=== PATIENT | female | born 1965 | race American Indian/Alaskan Native ===

== ENCOUNTER 2017-04-06 07:17 | Emergency (ER) | payer MEDICARE, MEDICAID ==
[2017-04-06] MEDS ORDERED: Polyethylene Glycol 3350 Powder 17 GM Packet PO ONE (07:35)
[2017-04-06] MEDS ORDERED: Sodium Chloride 0.9% 10 ML Syringe FLUSH PRN (07:35)
[2017-04-06] MEDS ORDERED: Sodium Chloride 0.9% 1,000 ML IV ONE (07:35)
[2017-04-06] MEDS ORDERED: diphenhydrAMINE 50 MG/ML SDV IVPUSH ONE (07:35)
[2017-04-06] MEDS ORDERED: Ondansetron 4 MG/2 ML SDV IV ONE (07:42)
--- NOTE | 2017-04-06 07:42 | EDM.PDOC ---
ED HPI GENERAL MEDICAL PROBLEM - General Stated Complaint: [id number] A LOT OF STOMACH PAIN Time Seen by Provider: 04/06/17 07:30 Source of Information: Reports: Patient History Limitations: Reports: No Limitations - History of Present Illness INITIAL COMMENTS - FREE TEXT/NARRATIVE: Patient comes emergency Department today with family with complaints of generalized abdominal pain. Patient woke this morning with severe pressure and distention in her abdomen. When she went to bed last night she did not have any symptoms. She does have a history of constipation. She relates that it feels like her constipation in the past. Most recently she has been on some pain medication following a tooth extraction. She has not been eating or drinking much at home. She denies any fever or chills. She does complain of nausea without vomiting. She denies any chest pain or shortness of breath. She denies any flank pain. She denies any hematuria dysuria or urinary frequency. Her last bowel movement was over a week ago and was nothing but hard judy she relates. Bilateral Middle Abdomen Pain Score (Numeric/FACES): 10 - Related Data Allergies Allergy/AdvReac Type Severity Reaction Status Date / Time carbamazepine [From Tegretol] Allergy Hives Verified 04/06/17 07:58 codeine Allergy Hives Verified 04/06/17 07:58 ibuprofen Allergy Hives Verified 04/06/17 07:58 levetiracetam [From Keppra] Allergy Hives Verified 04/06/17 07:58 oxycodone [Oxycodone] Allergy Hives Verified 04/06/17 07:58 phenobarbital Allergy Hives Verified 04/06/17 07:58 phenytoin sodium Allergy Hives Verified 04/06/17 07:58 [From Dilantin] phenytoin sodium extended Allergy Hives Verified 04/06/17 07:58 [From Dilantin] diazepam [From Valium] AdvReac Agitation Verified 04/06/17 07:58 Home Meds: Home Meds Divalproex Sodium [Divalproex Sodium ER] 500 mg PO DAILY 10/11/13 [History] Omeprazole [Omeprazole] 20 mg PO DAILY 09/28/15 [History] atorvaSTATin Calcium [Atorvastatin Calcium] 40 mg PO DAILY 10/21/16 [History] Methylprednisolone [IJD: Methylprednisolone] 4 mg PO ASDIRECTED 04/06/17 [ History] hydrOXYzine HCl [Atarax] 25 mg PO TID 04/06/17 [History] Past Medical History Cardiovascular History: Reports: High Cholesterol 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 ED EXAM, GI/ABD - Physical Exam Exam: See Below General Appearance: Alert, Anxious Ears: Normal External Exam, Normal Canal Nose: Normal Inspection, Normal Mucosa Throat/Mouth: Normal Inspection, Normal Lips, Normal Oropharynx Head: Atraumatic, Normocephalic Neck: Normal Inspection, Supple, Non-Tender Respiratory/Chest: No Respiratory Distress, Lungs Clear, Normal Breath Sounds, No Accessory Muscle Use, Other (Tachypnea from anxiety.) Cardiovascular: Normal Peripheral Pulses, Regular Rate, Rhythm, No Edema, No Murmur, No Rub GI/Abdominal: No Abnormal Bruit, No Mass, Hypoactive Bowel Sounds, Tenderness ( Generalized tenderness throughout.), Distention, Other (Dullness to percussion throughout.). No: Guarding, Rebound, Rigidity, Obturator Sign, Cross's Sign (Female) Exam: Deferred Rectal (Female) Exam: Deferred Back Exam: Normal Inspection. No: CVA Tenderness (L), CVA Tenderness (R) Extremities: Normal Inspection, Normal Range of Motion, Normal Capillary Refill Neurological: Alert, Oriented, Normal Cognition Psychiatric: Anxious Skin Exam: Warm, Dry, Intact, Normal Color Lymphatic: No Adenopathy Course - Vital Signs Last Recorded V/S: Last Vital Signs Temp 36.1 C 04/06/17 09:16 Pulse 48 L 04/06/17 09:16 Resp 20 04/06/17 09:16 BP 139/68 04/06/17 09:16 Pulse Ox 97 04/06/17 09:16 - Orders/Labs/Meds Orders: Active Orders 24 hr Category Date Time Status Enema [RC] ASDIRECTED Care 04/06/17 08:19 Active Peripheral IV Care [RC] . DIRECTED Care 04/06/17 07:36 Active Sodium Chloride 0.9% [Saline Flush] Med 04/06/17 07:35 Active 10 ml FLUSH ASDIRECTED PRN Peripheral IV Insertion Adult [OM.PC] Stat Oth 04/06/17 07:35 Ordered Medication Orders Sodium Chloride (Saline Flush) 10 ml FLUSH ASDIRECTED PRN PRN Reason: Keep Vein Open Last Admin: 04/06/17 07:51 Dose: 10 ml Labs: Laboratory Tests 04/06/17 04/06/17 04/06/17 Range/Units 08:01 08:01 08:31 WBC 11.5 H (5.0-10.0) 10^3/uL RBC 4.51 (4.2-5.4) 10^6/uL Hgb 13.8 (12.0-16.0) g/dL Hct 41.3 (37.0-47.0) % MCV 91.6 (80-100) fL MCH 30.6 (27.0-34.0) pg MCHC 33.4 (33.0-35.0) g/dL Plt Count 224 (150-450) 10^3/uL Neut % (Auto) 55.5 (42.2-75.2) % Lymph % (Auto) 39.0 (20.5-50.1) % [place] % (Auto) 5.1 (2-8) % Eos % (Auto) 0.4 L (1.0-3.0) % Baso % (Auto) 0.0 (0.0-1.0) % Sodium 142 (135-145) mmol/L Potassium 3.5 L (3.6-5.0) mmol/L Chloride 106 (101-111) mmol/L Carbon Dioxide 20.0 L (21.0-31.0) mmol/L Anion Gap 19.5 BUN 20 H (7-18) mg/dL Creatinine 0.7 (0.6-1.3) mg/dL Est Cr Clr Drug Dosing TNP Estimated GFR (MDRD) > 60 BUN/Creatinine Ratio 28.57 Glucose 101 (74-105) mg/dL Calcium 9.5 (8.4-10.2) mg/dl Total Bilirubin 0.6 (0.2-1.0) mg/dL AST 26 (10-42) IU/L ALT 30 (10-60) IU/L Alkaline Phosphatase 65 (42-121) IU/L Total Protein 7.7 (6.7-8.2) g/dl Albumin 4.4 (3.2-5.5) g/dl Globulin 3.3 Albumin/Globulin Ratio 1.33 Urine Color Yellow (YELLOW) Urine Appearance Clear (CLEAR) Urine pH 8.5 (5.0-9.0) Ur Specific [place] 1.015 (1.005-1.030) Urine Protein Negative (NEGATIVE) Urine Glucose (UA) Negative (NEGATIVE) Urine Ketones Negative (NEGATIVE) Urine Occult Blood Negative (NEGATIVE) Urine Nitrite Negative (NEGATIVE) Urine Bilirubin Negative (NEGATIVE) Urine Urobilinogen 0.2 (0.2-1.0) mg/dL Ur Leukocyte Esterase Trace H (NEGATIVE) Urine RBC Not seen /HPF Urine WBC 0-5 (0-5/HPF) /HPF Ur Epithelial Cells Few /HPF Urine Bacteria Not seen (0-FEW/HPF) /HPF Meds: Medications Generic Name Dose Route Start Last Admin Trade Name Freq PRN Reason Stop Dose Admin Sodium Chloride 10 ml 04/06/17 07:35 04/06/17 07:51 Saline Flush FLUSH 10 ml ASDIRECTED PRN Administration Keep Vein Open Discontinued Medications Generic Name Dose Route Start Last Admin Trade Name Freq PRN Reason Stop Dose Admin Diphenhydramine HCl 25 mg 04/06/17 07:35 04/06/17 07:51 Benadryl IVPUSH 04/06/17 07:36 25 mg ONETIME ONE Administration Sodium Chloride 1,000 mls @ 999 mls/hr 04/06/17 07:35 04/06/17 09:14 Normal Saline IV 04/06/17 08:35 Infused .BOLUS ONE Infusion Ondansetron HCl 4 mg 04/06/17 07:42 04/06/17 07:51 Zofran IV 04/06/17 07:43 4 mg ONETIME ONE Administration Polyethylene Glycol 34 gm 04/06/17 07:35 04/06/17 08:31 Miralax PO 04/06/17 07:36 34 gm ONETIME ONE Administration - Radiology Interpretation Free Text/Narrative:: X-ray of the abdomen reviewed extemporaneously by myself. Large amount of stool throughout the colon. No air-fluid levels consistent with obstruction no volvulus. - Re-Assessments/Exams Free Text/Narrative Re-Assessment/Exam: 04/06/17 08:31 IV normal saline 1 L wide open for IV hydration. Zofran 4 mg IV push for nausea. Benadryl 25 mg IV push for nausea and anxiety. MiraLAX 34 g by mouth. Explained to the patient that she appears to be constipated. This is most likely related to her current usage of narcotics following a dental procedure. We will try an enema and some MiraLAX to get things moving forward. 04/06/17 10:34 After two enemas the patient had large results. Her abd is soft, with present bowel sounds. She denies any pain or nausea feels much better and ready to go home. Discharge instructions as below were explained to the patient she was comfortable with the plan and her questions were answered. Departure - Departure Time of Disposition: 10:08 Disposition: Home, Self-Care 01 Clinical Impression: Constipation Qualifiers: Constipation type: unspecified constipation type Qualified Code(s): K59.00 - Constipation, unspecified - Discharge Information Instructions: Constipation, Adult, [id number] Forms: ED Department Discharge Additional Instructions: Increase fluid intake until easy smooth bowel movements, water gatorade, Decrease caffeine as can dehydrate you. Miralax 1 capfull a day with a large glass of water. May increase every 2 days by a capfull until easy smooth bowel movements. Increase exercise or activity. Next time you take pain medication narcotics for any reason use the miralax to prevent constipation. Return to the ED if new or worsening symptoms. Recheck primary care provider in the next 4-6 days if not improving sooner if worse. - My Orders Last 24 Hours: My Active Orders 04/06/17 07:35 Sodium Chloride 0.9% [Saline Flush] 10 ml FLUSH ASDIRECTED PRN Peripheral IV Insertion Adult [OM.PC] Stat 04/06/17 07:36 Peripheral IV Care [RC] . DIRECTED 04/06/17 08:19 Enema [RC] ASDIRECTED - Assessment/Plan Last 24 Hours: My Active Orders 04/06/17 07:35 Sodium Chloride 0.9% [Saline Flush] 10 ml FLUSH ASDIRECTED PRN Peripheral IV Insertion Adult [OM.PC] Stat 04/06/17 07:36 Peripheral IV Care [RC] . DIRECTED 04/06/17 08:19 Enema [] ASDIRECTED Assessment:: Constipation, most likely narcotic induced due to recent dental extraction. Plan: Increase fluid intake until easy smooth bowel movements, water gatorade, Decrease caffeine as can dehydrate you. Miralax 1 capfull a day with a large glass of water. May increase every 2 days by a capfull until easy smooth bowel movements. Increase exercise or activity. Next time you take pain medication narcotics for any reason use the miralax to prevent constipation. Return to the ED if new or worsening symptoms. Recheck primary care provider in the next 4-6 days if not improving sooner if worse.
[2017-04-06 08:27] LABS: CHLORIDE,CL 106 mmol/L (101-111); SODIUM,NA 142 mmol/L (135-145)
[2017-04-06 09:17] VITALS: BP 139/68
== END 2017-04-06 10:30 | disposition home or self-care (01) ==
LOC: DL.ED 07:17
DX: K59.00 Constipation, unspecified (principal); E78.00 Pure hypercholesterolemia, unspecified; F41.9 Anxiety disorder, unspecified; Z88.8 Allergy status to other drugs, medicaments and biological substances; Z88.5 Allergy status to narcotic agent; Z88.6 Allergy status to analgesic agent; Z79.899 Other long term (current) drug therapy
CPT/HCPCS: 36415; 74020; 80053; 81001; 85025; 96365; 96375; 99284; A9270; J1200; J2405; J7030; J7050

== ENCOUNTER 2019-01-09 18:53 | Emergency (ER) | payer MEDICARE, MEDICAID ==
[2019-01-09 19:28] VITALS: BP 95/61
--- NOTE | 2019-01-09 19:37 | EDM.PDOC ---
ED HPI GENERAL MEDICAL PROBLEM - General Chief Complaint: Respiratory Problem Stated Complaint: LEFT SIDE ACHES [id number] Time Seen by Provider: 01/09/19 19:34 Source of Information: Reports: Patient History Limitations: Reports: No Limitations - History of Present Illness INITIAL COMMENTS - FREE TEXT/NARRATIVE: onset last night SOB hurts to breath, hard to cough, only ate half sandwich all day denies N/V/D. Generalized Pain Score (Numeric/FACES): 5 - Related Data Allergies Allergy/AdvReac Type Severity Reaction Status Date / Time carbamazepine [From Tegretol] Allergy Hives Verified 04/06/17 07:58 codeine Allergy Hives Verified 04/06/17 07:58 ibuprofen Allergy Hives Verified 04/06/17 07:58 levetiracetam [From Keppra] Allergy Hives Verified 04/06/17 07:58 oxycodone [Oxycodone] Allergy Hives Verified 04/06/17 07:58 phenobarbital Allergy Hives Verified 04/06/17 07:58 phenytoin sodium Allergy Hives Verified 04/06/17 07:58 [From Dilantin] phenytoin sodium extended Allergy Hives Verified 04/06/17 07:58 [From Dilantin] diazepam [From Valium] AdvReac Agitation Verified 04/06/17 07:58 Home Meds: Home Meds Divalproex Sodium [Divalproex Sodium ER] 500 mg PO DAILY 10/11/13 [History] Omeprazole 20 mg PO DAILY 09/28/15 [History] atorvaSTATin Calcium [Atorvastatin Calcium] 40 mg PO DAILY 10/21/16 [History] Methylprednisolone [IJD: Methylprednisolone] 4 mg PO ASDIRECTED 04/06/17 [ History] hydrOXYzine HCl [Atarax] 25 mg PO TID 04/06/17 [History] Past Medical History Cardiovascular History: Reports: High Cholesterol 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 ED EXAM, GENERAL - Physical Exam Exam: See Below Exam Limited By: No Limitations General Appearance: Alert, WD/WN, Mild Distress, Other (general [place]) Ears: Hearing Grossly Normal Throat/Mouth: Normal Voice, No Airway Compromise Head: Atraumatic Neck: Non-Tender, Full Range of Motion Respiratory/Chest: No Accessory Muscle Use, Rhonchi, Splinting Cardiovascular: Regular Rate, Rhythm GI/Abdominal: Soft, Non-Tender Neurological: Alert, Oriented, Normal Cognition, Normal Gait, No Motor/Sensory Deficits Psychiatric: Flat Affect Skin Exam: Warm, Dry, No Rash Lymphatic: No Adenopathy Course - Vital Signs Last Recorded V/S: Last Vital Signs Temp 37.7 C 01/09/19 19:27 Pulse 93 01/09/19 19:27 Resp 18 01/09/19 19:27 BP 95/61 01/09/19 19:27 Pulse Ox 96 01/09/19 19:27 - Orders/Labs/Meds Orders: Active Orders 24 hr Category Date Time Status EKG Documentation Completion [RC] STAT Care 01/09/19 19:33 Active RT Aerosol Therapy [RC] ASDIRECTED Care 01/09/19 21:01 Active Labs: Laboratory Tests 01/09/19 01/09/19 01/09/19 Range/Units 19:42 19:42 19:42 WBC 19.7 H (5.0-10.0) 10^3/uL RBC 4.25 (4.2-5.4) 10^6/uL Hgb 13.2 (12.0-16.0) g/dL Hct 38.6 (37.0-47.0) % MCV 90.8 (80-100) fL MCH 31.1 (27.0-34.0) pg MCHC 34.2 (33.0-35.0) g/dL Plt Count 180 (150-450) 10^3/uL Neut % (Auto) 75.3 H (42.2-75.2) % Lymph % (Auto) 14.7 L (20.5-50.1) % [place] % (Auto) 9.7 H (2-8) % Eos % (Auto) 0.1 L (1.0-3.0) % Baso % (Auto) 0.2 (0.0-1.0) % D-Dimer, Quantitative 158 (0-400) ng/mL Sodium 136 (135-145) mmol/L Potassium 3.5 L (3.6-5.0) mmol/L Chloride 103 (101-111) mmol/L Carbon Dioxide 22.0 (21.0-31.0) mmol/L Anion Gap 14.5 BUN 19 H (7-18) mg/dL Creatinine 0.7 (0.6-1.3) mg/dL Est Cr Clr Drug Dosing 89.01 mL/min Estimated GFR (MDRD) > 60 BUN/Creatinine Ratio 27.14 Glucose 103 (74-105) mg/dL Lactic Acid (0.5-2.2) mmol/L Calcium 9.1 (8.4-10.2) mg/dl Total Bilirubin 1.5 H (0.2-1.0) mg/dL AST 16 (10-42) IU/L ALT 12 (10-60) IU/L Alkaline Phosphatase 49 (42-121) IU/L Troponin I < 0.02 (0.00-0.02) ng/ml Total Protein 7.1 (6.7-8.2) g/dl Albumin 3.8 (3.2-5.5) g/dl Globulin 3.3 Albumin/Globulin Ratio 1.15 HCG, Qual Negative 01/09/19 Range/Units 19:42 WBC (5.0-10.0) 10^3/uL RBC (4.2-5.4) 10^6/uL Hgb (12.0-16.0) g/dL Hct (37.0-47.0) % MCV (80-100) fL MCH (27.0-34.0) pg MCHC (33.0-35.0) g/dL Plt Count (150-450) 10^3/uL Neut % (Auto) (42.2-75.2) % Lymph % (Auto) (20.5-50.1) % [place] % (Auto) (2-8) % Eos % (Auto) (1.0-3.0) % Baso % (Auto) (0.0-1.0) % D-Dimer, Quantitative (0-400) ng/mL Sodium (135-145) mmol/L Potassium (3.6-5.0) mmol/L Chloride (101-111) mmol/L Carbon Dioxide (21.0-31.0) mmol/L Anion Gap BUN (7-18) mg/dL Creatinine (0.6-1.3) mg/dL Est Cr Clr Drug Dosing mL/min Estimated GFR (MDRD) BUN/Creatinine Ratio Glucose (74-105) mg/dL Lactic Acid 1.2 (0.5-2.2) mmol/L Calcium (8.4-10.2) mg/dl Total Bilirubin (0.2-1.0) mg/dL AST (10-42) IU/L ALT (10-60) IU/L Alkaline Phosphatase (42-121) IU/L Troponin I (0.00-0.02) ng/ml Total Protein (6.7-8.2) g/dl Albumin (3.2-5.5) g/dl Globulin Albumin/Globulin Ratio HCG, Qual Meds: Medications Discontinued Medications Generic Name Dose Route Start Last Admin Trade Name Salomónq PRN Reason Stop Dose Admin Albuterol/Ipratropium 3 ml 01/09/19 21:01 01/09/19 21:21 Duoneb 3.0-0.5 Mg/3 Ml NEB 01/09/19 21:02 3 ml ONETIME ONE Administration Ceftriaxone Sodium 1 gm/ 50 mls @ 50 mls/hr 01/09/19 21:01 01/09/19 21:17 Sodium Chloride IV 01/09/19 22:00 50 mls/hr ONETIME ONE Administration Sodium Chloride 1,000 mls @ 999 mls/hr 01/09/19 21:01 01/09/19 21:12 Normal Saline IV 01/09/19 22:01 999 mls/hr .BOLUS ONE Administration Methylprednisolone Sodium Succinate 125 mg 01/09/19 21:01 01/09/19 21:18 Solu-Medrol IVPUSH 01/09/19 21:02 125 mg ONETIME ONE Administration - Re-Assessments/Exams Free Text/Narrative Re-Assessment/Exam: 01/09/19 21:32 results discussed with pt who is feeling much better s/p Rx Departure - Departure Time of Disposition: 23:10 Disposition: Home, Self-Care 01 Condition: Good Clinical Impression: Pneumonia Qualifiers: Pneumonia type: due to unspecified organism Laterality: right Lung location: middle lobe of lung Qualified Code(s): J18.1 - Lobar pneumonia, unspecified organism - Discharge Information Instructions: Community-Acquired Pneumonia, Adult Referrals: PCP,None [Primary Care Provider] - Forms: ED Department Discharge Additional Instructions: 1) rest 2) drink lots of liquids 3) take tylenol or motrin for fever 4) follow up at clinic rx given; z-joe tessalon pearles 100mg bid prn x 12 - My Orders Last 24 Hours: My Active Orders 01/09/19 19:33 EKG Documentation Completion [RC] STAT 01/09/19 21:01 RT Aerosol Therapy [RC] ASDIRECTED - Assessment/Plan Last 24 Hours: My Active Orders 01/09/19 19:33 EKG Documentation Completion [RC] STAT 01/09/19 21:01 RT Aerosol Therapy [RC] ASDIRECTED
[2019-01-09 20:14] LABS: ANION GAP 14.5; CHLORIDE,CL 103 mmol/L (101-111); SODIUM,NA 136 mmol/L (135-145)
[2019-01-09] MEDS ORDERED: Sodium Chloride 0.9% 1,000 ML IV ONE (21:01)
[2019-01-09] MEDS ORDERED: Albuterol/Ipratropium 3.0-0.5 MG/3 ML Neb Soln NEB ONE (21:01)
[2019-01-09] MEDS ORDERED: cefTRIAXone 1 GM in Sodium Chloride 0.9% 50 ML IV ONE (21:01)
[2019-01-09] MEDS ORDERED: methylPREDNISolone Sodium Succinate 125 MG/2 ML SDV IVPUSH ONE (21:01)
== END 2019-01-09 23:10 | disposition home or self-care (01) ==
LOC: DL.ED 18:53
DX: J18.1 Lobar pneumonia, unspecified organism (principal); F41.9 Anxiety disorder, unspecified; E78.00 Pure hypercholesterolemia, unspecified; Z88.5 Allergy status to narcotic agent; Z88.8 Allergy status to other drugs, medicaments and biological substances; Z79.899 Other long term (current) drug therapy
CPT/HCPCS: 36415; 71046; 80053; 83605; 84484; 84703; 85025; 85379; 93005; 94640; 96361; 96365; 96375; 99285; J0696; J2930; J7030; J7050; J7620-GY

== ENCOUNTER 2019-03-14 16:29 | Emergency (ER) | payer MEDICARE, OTHER ==
--- NOTE | 2019-03-14 17:08 | EDM.PDOC ---
"ED HPI GENERAL MEDICAL PROBLEM - General Chief Complaint: Neurological Problem Stated Complaint: SEIZURE/[id number] Time Seen by Provider: 03/14/19 17:08 Source of Information: Reports: Patient, Family, Old Records, RN, RN Notes Reviewed History Limitations: Reports: No Limitations - History of Present Illness INITIAL COMMENTS - FREE TEXT/NARRATIVE: Pt presents to ER with c/o a seizure. Pt reports Hx of history of seizure d/o but hasn't had a seizure for 7 years. She has injury to the Rt ring finger. The seizure was not witnessed. Pt states the seizure could have only lasted a few seconds because she told her neighbor to go call her daughter and the neighbor just stepped into the house to grab the phone and came right back out and by then the seizure was over. Pt's family report postictal confusion lasting about 15 minutes. Onset: Today Duration: Resolved Prior to Arrival Location: Reports: Generalized Severity: Mild Improves with: Reports: None Worsens with: Reports: None Associated Symptoms: Reports: No Other Symptoms - Related Data Allergies Allergy/AdvReac Type Severity Reaction Status Date / Time carbamazepine [From Tegretol] Allergy Hives Verified 03/14/19 16:53 codeine Allergy Hives Verified 03/14/19 16:53 ibuprofen Allergy Hives Verified 03/14/19 16:53 levetiracetam [From Keppra] Allergy Hives Verified 03/14/19 16:53 oxycodone [Oxycodone] Allergy Hives Verified 03/14/19 16:53 phenobarbital Allergy Hives Verified 03/14/19 16:53 phenytoin sodium Allergy Hives Verified 03/14/19 16:53 [From Dilantin] phenytoin sodium extended Allergy Hives Verified 03/14/19 16:53 [From Dilantin] diazepam [From Valium] AdvReac Agitation Verified 03/14/19 16:53 Home Meds: Home Meds Divalproex Sodium [Divalproex Sodium ER] 500 mg PO DAILY 10/11/13 [History] Omeprazole 20 mg PO DAILY 09/28/15 [History] ClonazePAM [KlonoPIN] 0.5 mg PO DAILY 03/14/19 [History] Past Medical History HEENT History: Reports: Impaired Vision Other HEENT History: wears glasses Cardiovascular History: Reports: High Cholesterol Respiratory History: Reports: None Gastrointestinal History: Reports: GERD, PUD Genitourinary History: Reports: None FEED ADVISER History: Reports: Musculoskeletal History: Reports: Fracture Neurological History: Reports: CVA, Seizure Psychiatric History: Reports: Anxiety Endocrine/Metabolic History: Reports: None Hematologic History: Reports: None Immunologic History: Reports: None Oncologic (Cancer) History: Reports: None Dermatologic History: Reports: None - Infectious Disease History Infectious Disease History: Reports: None - Past Surgical History Head Surgeries/Procedures: Reports: None HEENT Surgical History: Reports: Adenoidectomy, Tonsillectomy Social & Family History - Family History Family Medical History: Noncontributory - Tobacco Use Smoking Status *Q: Never Smoker Second Hand Smoke Exposure: No - Caffeine Use Caffeine Use: Reports: Energy Drinks - Recreational Drug Use Recreational Drug Type: Reports: Marijuana/Hashish - Living Situation & Occupation Living situation: Reports: with Family Occupation: Disabled ED ROS GENERAL - Review of Systems Review Of Systems: ROS reveals no pertinent complaints other than HPI. - Physical Exam Exam: See Below Exam Limited By: No Limitations General Appearance: Alert, WD/WN, No Apparent Distress Eye Exam: Bilateral Eye: EOMI, Normal Inspection, PERRL Ears: Normal External Exam, Normal Canal, Hearing Grossly Normal, Normal TMs Nose: Normal Inspection, Normal Mucosa, No Blood Throat/Mouth: Normal Lips, Normal Oropharynx, Normal Voice, No Airway Compromise , Evidence of Tongue Biting Head Exam: Atraumatic, Normocephalic Neck: Normal Inspection, Supple, Non-Tender, Full Range of Motion Respiratory/Chest: No Respiratory Distress, Lungs Clear, Normal Breath Sounds, No Accessory Muscle Use, Chest Non-Tender Cardiovascular: Normal Peripheral Pulses, Regular Rate, Rhythm, No Edema, No Gallop, No JVD, No Murmur, No Rub GI/Abdominal: Normal Bowel Sounds, Soft, Non-Tender, No Organomegaly, No Distention, No Abnormal Bruit, No Mass (Female) Exam: Deferred Rectal (Female) Exam: Deferred Neuro Exam (Abbreviated): Alert, Oriented, CN II-XII Intact, Normal Cognition, Normal Gait, Normal Reflexes, No Motor/Sensory Deficits Back Exam: Normal Inspection Extremities: No Pedal Edema, Normal Capillary Refill, Other (Right 4th finger distal PIP swollen and bruised) Psychiatric: Normal Affect, Normal Mood Skin Exam: Warm, Dry, Wound/Incision (small superficial abrasion to Rt ankle) ED PROCEDURES - Joint Reduction Site: Finger (R) (4th distal PIP) Sedation: Other (none (pt declined)) Pre-procedure NV status: Normal Post-procedure NV status: Normal Technique: Other (close manual reduction) Number of Attempts: 1 Post-Reduction Imaging: Completely Reduced Complications: No - Splinting Right 4th Digit Splint Site: Rt 4th finger Pre-procedure NV status: Normal Post-procedure NV status: Normal Splint Material: Aluminum-Foam Splint Design: Sugar Tong Applied & Form Fitted By: Nurse Provider Post-Splint Application NV Check: NV Status Normal, Good Position Complications: No Course - Vital Signs Last Recorded V/S: Last Vital Signs Temp 36.3 C 03/14/19 18:25 Pulse 70 03/14/19 18:25 Resp 16 03/14/19 18:25 BP 122/53 L 03/14/19 18:25 Pulse Ox 99 03/14/19 18:25 - Orders/Labs/Meds Orders: Active Orders 24 hr Category Date Time Status Blood Glucose Check, Bedside [RC] ONETIME Care 03/14/19 17:16 Active Peripheral IV Care [RC] . DIRECTED Care 03/14/19 17:16 Active Splinting [RC] ASDIRECTED Care 03/14/19 17:18 Active CULTURE URINE [RM] Stat Lab 03/14/19 18:00 Received VALPROIC ACID [REF] Stat Lab 03/14/19 17:23 Received Peripheral IV Insertion Adult [OM.PC] Stat Oth 03/14/19 17:16 Ordered Seizure Precautions [OM.PC] Routine Oth 03/14/19 17:14 Ordered Labs: Laboratory Tests 03/14/19 03/14/19 03/14/19 Range/Units 17:23 17:23 18:00 WBC 6.1 (5.0-10.0) 10^3/uL RBC 4.10 L (4.2-5.4) 10^6/uL Hgb 12.9 (12.0-16.0) g/dL Hct 38.6 (37.0-47.0) % MCV 94.1 D (80-100) fL MCH 31.5 (27.0-34.0) pg MCHC 33.4 (33.0-35.0) g/dL Plt Count 161 (150-450) 10^3/uL Neut % (Auto) 46.8 (42.2-75.2) % Lymph % (Auto) 42.8 (20.5-50.1) % [place] % (Auto) 6.3 (2-8) % Eos % (Auto) 3.6 H (1.0-3.0) % Baso % (Auto) 0.5 (0.0-1.0) % Sodium 138 (135-145) mmol/L Potassium 2.9 L (3.6-5.0) mmol/L Chloride 105 (101-111) mmol/L Carbon Dioxide 25.0 (21.0-31.0) mmol/L Anion Gap 10.9 BUN 21 H (7-18) mg/dL Creatinine 0.6 (0.6-1.3) mg/dL Est Cr Clr Drug Dosing 103.84 mL/min Estimated GFR (MDRD) > 60 BUN/Creatinine Ratio 35.00 Glucose 111 H (74-105) mg/dL Calcium 8.5 (8.4-10.2) mg/dl Total Bilirubin 0.8 (0.2-1.0) mg/dL AST 17 (10-42) IU/L ALT 11 (10-60) IU/L Alkaline Phosphatase 47 (42-121) IU/L Lactate Dehydrogenase 143 (91-180) IU/L Creatine Kinase 73 (26-174) IU/L Total Protein 7.2 (6.7-8.2) g/dl Albumin 4.2 (3.2-5.5) g/dl Globulin 3.0 Albumin/Globulin Ratio 1.40 Urine Color Yellow (YELLOW) Urine Appearance Cloudy (CLEAR) Urine pH 7.5 (5.0-9.0) Ur Specific [place] 1.020 (1.005-1.030) Urine Protein Negative (NEGATIVE) Urine Glucose (UA) Negative (NEGATIVE) Urine Ketones Negative (NEGATIVE) Urine Occult Blood Small H (NEGATIVE) Urine Nitrite Negative (NEGATIVE) Urine Bilirubin Negative (NEGATIVE) Urine Urobilinogen 0.2 (0.2-1.0) mg/dL Ur Leukocyte Esterase Trace H (NEGATIVE) Urine RBC 10-20 H /HPF Urine WBC 5-10 H (0-5/HPF) /HPF Ur Epithelial Cells Few (NOT SEEN) /HPF Amorphous Sediment Rare (NOT SEEN) /HPF Urine Bacteria Few (0-FEW/HPF) /HPF Urine Mucus Few H (NOT SEEN) /LPF Urine Opiates Screen (NEGATIVE) Ur Oxycodone Screen (NEGATIVE) Urine Methadone Screen (NEGATIVE) Ur Barbiturates Screen (NEGATIVE) U Tricyclic Antidepress (NEGATIVE) Ur Phencyclidine Scrn (NEGATIVE) Ur Amphetamine Screen (NEGATIVE) U Methamphetamines Scrn (NEGATIVE) Urine MDMA Screen (NEGATIVE) U Benzodiazepines Scrn (NEGATIVE) Urine Cocaine Screen (NEGATIVE) U Marijuana (THC) Screen (NEGATIVE) Ethyl Alcohol < 5 mg/dL 03/14/19 Range/Units 18:00 WBC (5.0-10.0) 10^3/uL RBC (4.2-5.4) 10^6/uL Hgb (12.0-16.0) g/dL Hct (37.0-47.0) % MCV (80-100) fL MCH (27.0-34.0) pg MCHC (33.0-35.0) g/dL Plt Count (150-450) 10^3/uL Neut % (Auto) (42.2-75.2) % Lymph % (Auto) (20.5-50.1) % [place] % (Auto) (2-8) % Eos % (Auto) (1.0-3.0) % Baso % (Auto) (0.0-1.0) % Sodium (135-145) mmol/L Potassium (3.6-5.0) mmol/L Chloride (101-111) mmol/L Carbon Dioxide (21.0-31.0) mmol/L Anion Gap BUN (7-18) mg/dL Creatinine (0.6-1.3) mg/dL Est Cr Clr Drug Dosing mL/min Estimated GFR (MDRD) BUN/Creatinine Ratio Glucose (74-105) mg/dL Calcium (8.4-10.2) mg/dl Total Bilirubin (0.2-1.0) mg/dL AST (10-42) IU/L ALT (10-60) IU/L Alkaline Phosphatase (42-121) IU/L Lactate Dehydrogenase (91-180) IU/L Creatine Kinase (26-174) IU/L Total Protein (6.7-8.2) g/dl Albumin (3.2-5.5) g/dl Globulin Albumin/Globulin Ratio Urine Color (YELLOW) Urine Appearance (CLEAR) Urine pH (5.0-9.0) Ur Specific [place] (1.005-1.030) Urine Protein (NEGATIVE) Urine Glucose (UA) (NEGATIVE) Urine Ketones (NEGATIVE) Urine Occult Blood (NEGATIVE) Urine Nitrite (NEGATIVE) Urine Bilirubin (NEGATIVE) Urine Urobilinogen (0.2-1.0) mg/dL Ur Leukocyte Esterase (NEGATIVE) Urine RBC /HPF Urine WBC (0-5/HPF) /HPF Ur Epithelial Cells (NOT SEEN) /HPF Amorphous Sediment (NOT SEEN) /HPF Urine Bacteria (0-FEW/HPF) /HPF Urine Mucus (NOT SEEN) /LPF Urine Opiates Screen Positive H (NEGATIVE) Ur Oxycodone Screen Positive H (NEGATIVE) Urine Methadone Screen Negative (NEGATIVE) Ur Barbiturates Screen Negative (NEGATIVE) U Tricyclic Antidepress Negative (NEGATIVE) Ur Phencyclidine Scrn Negative (NEGATIVE) Ur Amphetamine Screen Negative (NEGATIVE) U Methamphetamines Scrn Negative (NEGATIVE) Urine MDMA Screen Negative (NEGATIVE) U Benzodiazepines Scrn Negative (NEGATIVE) Urine Cocaine Screen Negative (NEGATIVE) U Marijuana (THC) Screen Positive H (NEGATIVE) Ethyl Alcohol mg/dL Meds: Medications Discontinued Medications Generic Name Dose Route Start Last Admin Trade Name Freq PRN Reason Stop Dose Admin Lidocaine HCl 30 ml 03/14/19 17:18 03/14/19 17:40 Xylocaine-Mpf 1% INJECT 03/14/19 17:19 30 ml ONETIME ONE Administration Potassium Chloride 40 meq 03/14/19 18:31 03/14/19 18:35 Klor-Con 10 PO 03/14/19 18:32 40 meq ONETIME ONE Administration Sodium Chloride 10 ml 03/14/19 17:16 03/14/19 17:40 Saline Flush FLUSH 10 ml ASDIRECTED PRN Administration Keep Vein Open - Radiology Interpretation Free Text/Narrative:: [facility] Final Radiology Report Call: [phone] assistance Online chat: [email or web address] Name: BRISEYDA BOND Age: 53Years F Date: 03/14/2019 SSN: -- : [id number] Study: CT HEAD WO Requesting Physician: MALINA HEARN Images: 145 Addl Studies: Provided Clinical History: Contrast: Without Contrast Medium: Contrast Amount: Contrast Method: Page 1 of 2 EXAM: CT Head Without Contrast EXAM DATE/TIME: 03/14/2019 5:35 PM CLINICAL HISTORY: 53 years old, female; Injury or trauma; Injury history: Seizure, Hx of CVA; Initial encounter; Blunt trauma (contusions or hematomas); Consciousness not specified TECHNIQUE: Imaging protocol: Axial computed tomography images of the head without contrast. Coronal and sagittal reformatted images were created and reviewed. Radiation optimization: All CT scans at this facility use at least one of these dose optimization techniques: automated exposure control; mA and/or kV adjustment per patient size (includes targeted exams where dose is matched to clinical indication); or iterative reconstruction. COMPARISON: No prior study is available for comparison at the time of this interpretation. FINDINGS: There are left parietal scalp soft tissue contusions, but the skull and remainder of the scalp are unremarkable. There is mild enlargement of the ventricles and sulci bilaterally, consistent with brain atrophy. No hydrocephalus or pathologic midline shift. Centered within the external capsule of the left basal ganglia is an irregular approximately 1 x 2 x 2 cm focus of encephalomalacia which contains a punctate internal calcification, consistent with chronic sequela of a remote prior infarct or parenchymal hemorrhage, with associated mild ex vacuo dilatation of the body of the left lateral ventricle. No other abnormal foci of altered attenuation within the remaining cerebral or cerebellar parenchyma. HAYDE BRISEYDA CRANE | Final Radiology Report CONFIDENTIALITY STATEMENT This report is intended only for use by the referring physician, and only in accordance with law. If you received this in error, call [phone]. Page 2 of 2 No intracranial mass lesion or evidence for acute territorial infarct. No abnormal extraaxial fluid or air collection; no acute intracranial hemorrhage. The visualized paranasal sinuses, orbits, and mastoid air cells are unremarkable. IMPRESSION: No acute intracranial pathology; see above comments. Thank you for allowing us to participate in the care of your patient. Dictated and Authenticated by: Ganga Barber MD 03/14/2019 6:03 PM Central Time ([place] & [place]) CLINICAL HISTORY: 53 years old, female; Pain; Hand; Right; Patient Hx: Injured during seizure TECHNIQUE: 3 views of the right hand with attention to the fourth finger. COMPARISON: No relevant prior study is available for comparison at the time of this interpretation. FINDINGS/IMPRESSION: Acute-appearing nondisplaced oblique fracture through the distal half of the fourth middle phalanx, with adjacent mild soft tissue swelling, and with associated mild valgus deformity of the fourth distal interphalangeal joint, but otherwise grossly anatomic alignment. No other findings. Thank you for allowing us to participate in the care of your patient. Dictated and Authenticated by: Ganga Barber MD 03/14/2019 6:31 PM Central Time ([place] & [place]) Rt 4th distal PIP was dislocated as well. Departure - Departure Time of Disposition: 18:28 Disposition: Home, Self-Care 01 Condition: Good Clinical Impression: Seizure, Hypokalemia Dislocation closed, finger Qualifiers: Encounter type: initial encounter Qualified Code(s): S63.259A - Unspecified dislocation of unspecified finger, initial encounter Abrasion of ankle Qualifiers: Encounter type: initial encounter Laterality: right Qualified Code(s): S90.511A - Abrasion, right ankle, initial encounter Closed fracture of phalanx of right ring finger Qualifiers: Encounter type: initial encounter Phalanx: middle Fracture alignment: nondisplaced Qualified Code(s): S62.654A - Nondisplaced fracture of middle phalanx of right ring finger, initial encounter for closed fracture - Discharge Information *PRESCRIPTION DRUG MONITORING PROGRAM REVIEWED*: No *COPY OF PRESCRIPTION DRUG MONITORING REPORT IN PATIENT MAYO: No Instructions: Finger or Thumb Dislocation, [id number], Finger Fracture, Adult , [id number], Hypokalemia, Seizure, Adult, [id number] Referrals: James Arreguin [Primary Care Provider] - Forms: ED Department Discharge Additional Instructions: Rx: Potassium Chloride 20mEq Wear finger splint until instructed to remove by your doctor. Follow up in clinic in 4 to 5 days for recheck of seizure, finger, and potassium. - My Orders Last 24 Hours: My Active Orders 03/14/19 17:14 Seizure Precautions [OM.PC] Routine 03/14/19 17:16 Blood Glucose Check, Bedside [RC] ONETIME Peripheral IV Care [RC] . DIRECTED Peripheral IV Insertion Adult [OM.PC] Stat 03/14/19 17:18 Splinting [RC] ASDIRECTED 03/14/19 17:23 VALPROIC ACID [REF] Stat 03/14/19 18:00 CULTURE URINE [RM] Stat - Assessment/Plan Last 24 Hours: My Active Orders 03/14/19 17:14 Seizure Precautions [OM.PC] Routine 03/14/19 17:16 Blood Glucose Check, Bedside [RC] ONETIME Peripheral IV Care [RC] . DIRECTED Peripheral IV Insertion Adult [OM.PC] Stat 03/14/19 17:18 Splinting [RC] ASDIRECTED 03/14/19 17:23 VALPROIC ACID [REF] Stat 03/14/19 18:00 CULTURE URINE [RM] Stat"
[2019-03-14] MEDS ORDERED: Sodium Chloride 0.9% 10 ML Syringe FLUSH PRN (17:16)
[2019-03-14] MEDS ORDERED: Lidocaine 1% 30 ML SDV INJECT ONE (17:18)
[2019-03-14 17:53] LABS: ANION GAP 10.9; CHLORIDE,CL 105 mmol/L (101-111); SODIUM,NA 138 mmol/L (135-145)
[2019-03-14 18:26] VITALS: BP 122/53
[2019-03-14] MEDS ORDERED: Potassium Chloride 10 MEQ Tab.ER PO ONE (18:31)
== END 2019-03-14 18:45 | disposition home or self-care (01) ==
LOC: DL.ED 16:29
DX: S62.654A Nondisplaced fracture of middle phalanx of right ring finger, initial encounter for closed fracture (principal); S90.511A Abrasion, right ankle, initial encounter; R56.9 Unspecified convulsions; E87.6 Hypokalemia; Z88.5 Allergy status to narcotic agent; Z88.6 Allergy status to analgesic agent; Z88.8 Allergy status to other drugs, medicaments and biological substances; E78.00 Pure hypercholesterolemia, unspecified; K21.9 Gastro-esophageal reflux disease without esophagitis; F41.9 Anxiety disorder, unspecified; Z86.73 Personal history of transient ischemic attack (TIA), and cerebral infarction without residual deficits; W19.XXXA Unspecified fall, initial encounter
CPT/HCPCS: 26755; 36415; 70450; 73140; 80053; 80164; 80305; 81001; 82550; 83615; 85025; 87086; 99284; A9270; G0480; 28660; J2001